=== PATIENT | female | born 1975 | race Caucasian/White ===

== ENCOUNTER 2016-10-21 14:38 | Emergency (ER) | payer MEDICAID ==
[~2016-10-21] VITALS: Ht 162.6 cm; Wt 99.1 kg
[~2016-10-21 14:38] MED LIST: FERR324T4 PO; PREN1TAB12 PO; RANI150 PO; ZOFR4TAB3 PO
[2016-10-21 14:50] VITALS: BP 112/77; PULSE 82; RESP 16; TEMP 98.2; O2SAT 98
[2016-10-21] MEDS ORDERED: SODIUM CHLOR 0.9% 1000 ML INJ 1,000 ML IV SCH (15:06)
[2016-10-21 15:07] LABS: BLOOD, URINE NEG (NEG); GLUCOSE,URINE NEG (NEG); KETONE, URINE NEG (NEG); NITRITE,URINE NEG (NEG)
--- NOTE | 2016-10-21 15:10 | PD ---
HPI Chief Complaint: Pain: Acute or Chronic Time Seen by Provider: 15:06 Travel History International Travel<30 days: No Contact w/Intl Traveler<30days: No Traveled to known affect area: No History of Present Illness HPI 41-year-old female patient with history of diabetes, presents to the ER today because of right flank pains or radiation down to her right lower quadrant. She has been dizzy, having headaches, nauseous. She states she has had a missed period. She denies any urinary symptoms or unusual discharge. She denies fevers or other symptoms. Modifying Factors: None Associated Signs & Symptoms: Right flank pains, nausea, dizziness, headaches Risk Factors: None PFSH Past Medical History Anemia: Yes Cancer: No Cardiovascular Problems: No Diabetes: Yes (Gestational) Patient Takes Glucophage: No Diminished Hearing: No Endocrine: No GERD: Yes Genitourinary: No Immune Disorder: No Musculoskeletal: No Neurologic: No Psychiatric: No Reproductive: No Respiratory: No Immunizations Current: No (UNSURE, FROM [facility] 2 mths ago) Sickle Cell Disease: Yes (Trait) Tetanus Vaccination: > 5 Years Influenza Vaccination: No ?: Unknown LMP: 09/21/16 : 4 Para: 3 Past Surgical History Section: Yes (X's 1) Gynecologic Surgery: Yes ( SECTION ) Other Surgery: Yes Social History Alcohol Use: No Tobacco Use: No Substance Use: No Allergies-Medications (Allergen,Severity, Reaction): Coded Allergies: No Known Allergies (Unverified , 10/21/16) Reported Meds & Prescriptions Reported Meds & Active Scripts Active No Active Prescriptions or Reported Medications Review of Systems Except as stated in HPI: all other systems reviewed are Neg Physical Exam Narrative GENERAL: Well-developed middle age -[place] female patient currently in mild distress. Awake and oriented 3. SKIN: Focused skin assessment warm/dry. HEAD: Atraumatic. Normocephalic. EYES: Pupils equal and round. No scleral icterus. No injection or drainage. ENT: No nasal bleeding or discharge. Mucous membranes pink and moist. NECK: Trachea midline. No JVD. CARDIOVASCULAR: Regular rate and rhythm. No murmur appreciated. RESPIRATORY: No accessory muscle use. Clear to auscultation. Breath sounds equal bilaterally. GASTROINTESTINAL: Abdomen soft, right sided pelvic tenderness without guarding or rebound, nondistended. Hepatic and splenic margins not palpable. GENITOURINARY: Normal external genitalia without lesions or erythema. Vaginal vault without blood or drainage. Cervical os was closed without drainage. No cervical motion tenderness. Uterus nontender and nonenlarged. Bilateral adnexa nontender without masses. MUSCULOSKELETAL: No obvious deformities. No clubbing. No cyanosis. No edema. NEUROLOGICAL: Awake and alert. No obvious cranial nerve deficits. Motor grossly within normal limits. Normal speech. PSYCHIATRIC: Appropriate mood and affect; insight and judgment normal. Data Data Last Documented VS Vital Signs Date Time Temp Pulse Resp B/P (MAP) Pulse Ox O2 Delivery O2 Flow Rate FiO2 10/21/16 15:15 95 Room Air 10/21/16 14:50 98.2 82 16 112/77 (89) Orders Orders Urinalysis - C+S If Indicated (10/21/16 14:57) Ed Urine Pregnancytest Poc (10/21/16 14:57) Beta Hcg (Quant/Titer) (10/21/16 15:06) Complete Blood Count With Diff (10/21/16 15:06) Comprehensive Metabolic Panel (10/21/16 15:06) Ct Abd/Pel W/O Iv Contrast (10/21/16 15:06) Iv Access Insert/Monitor (10/21/16 15:06) Ecg Monitoring (10/21/16 15:06) Oximetry (10/21/16 15:06) Morphine Inj (Morphine Inj) (10/21/16 15:15) Ondansetron Inj (Zofran Inj) (10/21/16 15:15) Sodium Chlor 0.9% 1000 Ml Inj (Ns 1000 M (10/21/16 15:06) Sodium Chloride 0.9% Flush (Ns Flush) (10/21/16 15:15) Gc And Chlamydia Pcr (10/21/16 16:29) Wet Prep Profile (10/21/16 16:29) Labs Laboratory Tests Test 10/21/16 15:00 10/21/16 15:15 10/21/16 16:30 Urine Color YELLOW Urine Turbidity CLEAR Urine pH 6.0 Urine Specific [place] 1.011 Urine Protein NEG mg/dL Urine Glucose (UA) NEG mg/dL Urine Ketones NEG mg/dL Urine Occult Blood NEG Urine Nitrite NEG Urine Bilirubin NEG Urine Leukocyte Esterase NEG Urine WBC 0-2 /hpf Urine Squamous Epithelial Cells 0-5 /hpf Microscopic Urinalysis Comment CULT NOT INDICATED White Blood Count 13.0 TH/MM3 Red Blood Count 4.99 MIL/MM3 Hemoglobin 11.1 GM/DL Hematocrit 35.2 % Mean Corpuscular Volume 70.5 FL Mean Corpuscular Hemoglobin 22.3 PG Mean Corpuscular Hemoglobin Concent 31.6 % Red Cell Distribution Width 17.5 % Platelet Count 232 TH/MM3 Mean Platelet Volume 9.1 FL CBC Comment AUTO DIFF Differential Total Cells Counted 100 Neutrophils % (Manual) 61 % Lymphocytes % 35 % Monocytes % 2 % Eosinophils % 2 % Neutrophils # (Manual) 7.9 TH/MM3 Differential Comment FINAL DIFF MANUAL Atypical Lymphocytes % Platelet Estimate NORMAL Platelet Morphology Comment NORMAL Target Cells 1+ Tear Drop Cells 1+ Ovalocytes 1+ Blood Urea Nitrogen 11 MG/DL Creatinine 0.90 MG/DL Random Glucose 126 MG/DL Total Protein 8.0 GM/DL Albumin 3.7 GM/DL Calcium Level 8.4 MG/DL Alkaline Phosphatase 88 U/L Aspartate Amino Transf (AST/SGOT) 16 U/L Alanine Aminotransferase (ALT/SGPT) 16 U/L Total Bilirubin 0.6 MG/DL Sodium Level 139 MEQ/L Potassium Level 3.7 MEQ/L Chloride Level 105 MEQ/L Carbon Dioxide Level 26.8 MEQ/L Anion Gap 7 MEQ/L Estimat Glomerular Filtration Rate 69 ML/MIN Human Chorionic Gonadotropin, Quant LESS THAN 1 MIU/ML Clue Cells (Wet Prep) NONE SEEN Vaginal Trichomonas (Wet Prep) NONE SEEN Vaginal Yeast (Wet Prep) NONE SEEN MDM Medical Decision Making Medical Screen Exam Complete: Yes Emergency Medical Condition: Yes Medical Record Reviewed: Yes Interpretation(s) Laboratory Tests Test 10/21/16 15:00 10/21/16 15:15 10/21/16 16:30 White Blood Count 13.0 TH/MM3 (4.0-11.0) Hemoglobin 11.1 GM/DL (11.6-15.3) Mean Corpuscular Volume 70.5 FL (80.0-100.0) Mean Corpuscular Hemoglobin 22.3 PG (27.0-34.0) Mean Corpuscular Hemoglobin Concent 31.6 % (32.0-36.0) Red Cell Distribution Width 17.5 % (11.6-17.2) Neutrophils # (Manual) 7.9 TH/MM3 (1.8-7.7) Target Cells 1+ (NORMAL) Tear Drop Cells 1+ (NORMAL) Ovalocytes 1+ (NORMAL) Random Glucose 126 MG/DL (74-106) Calcium Level 8.4 MG/DL (8.5-10.1) Estimat Glomerular Filtration Rate 69 ML/MIN (>89) Last 24 hours Impressions Abdomen/Pelvis CT 10/21/16 1506 Signed Impressions: Service Date/Time: Wednesday, October 21, 2016 15:47 - CONCLUSION: 1. No renal stones identified. 2. Calcified gallstones within the gallbladder. 3. No definite abnormality to explain the patient's back pain identified. Ramon Peck MD Differential Diagnosis UTI/pyelonephritis versus renal colic versus gastroenteritis versus appendicitis versus cervicitis Narrative Course CAT scan shows gallstones but no signs of acute issues. Lab work was otherwise unremarkable. UA shows no signs of UTI. Patient is not . At this point, I do not see any other acute processes my plan would be to release her with follow-up to primary care physician. Return for new issues as needed. The plan has discussed with her and she states understanding. Diagnosis Primary Impression: Right flank pain Med/Other Pt SpecificInfo: Prescription(s) given Scripts Ibuprofen (Motrin Ib) 200 Mg Tablet 600 MG PO QID Y for PAIN SCALE 1 TO 10, #28 Prov: Leno Hines MD 10/21/16 Disposition: 01 DISCHARGE HOME Condition: Stable Leno Hines MD Oct 21, 2016 15:10
[2016-10-21 15:14] LABS: URINE COLOR YELLOW (YELLW/STRAW)
[2016-10-21 15:15] VITALS: O2SAT 95
[2016-10-21 15:15] LABS: COMMENT (UR) CULT NOT INDICATED; CULTURE IF INDICATED CULT NOT INDICATED; SQUAMOUS EPITHELIAL CELL URINE 0-5 /hpf (0-5); WBC, URINE 0-2 /hpf (0-5)
[2016-10-21] MEDS ORDERED: ONDANSETRON HCL 4 MG/2 ML VIAL IVP ONE (15:15)
[2016-10-21] MEDS ORDERED: MORPHINE SULFATE 4 MG/ML INJ IV PUSH ONE (15:15)
[2016-10-21] MEDS ORDERED: SODIUM CHLORIDE 0.9% FLUSH 10 ML FLUSH IV FLUSH PRN (15:15)
[2016-10-21 15:26] LABS: HEMATOCRIT 35.2 % (35.0-46.0); MEAN CELL VOLUME 70.5 FL (80.0-100.0); MEAN CORPUSCULAR HEMOGLOBIN 22.3 PG (27.0-34.0); MEAN CORPUSCULAR HGB CONC 31.6 % (32.0-36.0); PLATELET COUNT 232 TH/MM3 (150-450); RED BLOOD COUNT 4.99 MIL/MM3 (4.00-5.30); RED CELL DISTRIBUTION WIDTH 17.5 % (11.6-17.2)
[2016-10-21 15:28] LABS: CHLORIDE 105 MEQ/L (98-107); POTASSIUM 3.7 MEQ/L (3.5-5.1); SODIUM (NA) 139 MEQ/L (136-145)
[2016-10-21 15:31] LABS: ANION GAP 7 MEQ/L (5-15); BICARBONATE 26.8 MEQ/L (21.0-32.0)
[2016-10-21 15:32] LABS: BLOOD UREA NITROGEN 11 MG/DL (7-18)
[2016-10-21 15:34] LABS: ALT (GPT) 16 U/L (10-53); AST (GOT) 16 U/L (15-37)
[2016-10-21 15:35] LABS: GLOMERULAR FILTRATION RATE 69 ML/MIN (>89)
[2016-10-21 15:36] LABS: TOTAL BILIRUBIN ADULT 0.6 MG/DL (0.2-1.0)
[2016-10-21 15:37] LABS: ALKALINE PHOSPHATASE 88 U/L (45-117)
[2016-10-21 15:39] LABS: BETA HCG QUANT LESS THAN 1 MIU/ML (0-5)
[2016-10-21 15:41] LABS: HEMO FLAGS AUTO DIFF
--- NOTE | 2016-10-21 16:04 | RADRPT ---
EXAM DATE/TIME: 10/21/2016 15:47 [facility] COMPARISON: No previous studies available for comparison. INDICATIONS : Right back pain that radiates to pelvic area. ORAL CONTRAST: No oral contrast ingested. RADIATION DOSE: 27.30 CTDIvol (mGy) ; High dose protocol; Patient body habitus MEDICAL HISTORY : None SURGICAL HISTORY : section. ENCOUNTER: Initial ACUITY: 1 day PAIN SCALE: 5/10 LOCATION: Right flank TECHNIQUE: Volumetric scanning of the abdomen and pelvis was performed. Using automated exposure control and ad justment of the mA and/or kV according to patient size, radiation dose was kept as low as reasonably achievable to obtain optimal diagnostic quality images. DICOM format image data is available electro nically for review and comparison. FINDINGS: Right kidney/ureter: The kidney is normal in size. No stones are seen. The ureter is followed throughout its course and is normal in appearance. Left kidney/ureter: The left kidney is normal in size. There is no hydronephrosis. The left ureter is followed throughout its course. No stones are identified. Bladder: No stones are identified within the bladder. CT source data: The limited portion of lung base visualized is clear. The appearance of the liver, spleen, pancreas a nd adrenal glands is within normal limits. There are multiple calcified gallstones within the gallbla dder. No free intraperitoneal air is seen. No retroperitoneal adenopathy is present. The abdominal ao rta is normal in caliber. There is a very minimal amount of free fluid within the pelvis. No iliac or inguinal adenopathy is present. The reproductive organs are intact. The visualized osseous structure s are intact. CONCLUSION: 1. No renal stones identified. 2. Calcified gallstones within the gallbladder. 3. No definite abnormality to explain the patient's back pain identified. Ramon Peck MD on October 21, 2016 at 15:57 Board Certified Radiologist. This report was verified electronically.
[2016-10-21 16:34] LABS: EOSINOPHILS 2 % (0-4); NEUTROPHIL # MANUAL DIFF 7.9 TH/MM3 (1.8-7.7); POLYS (SEG NEUTROPHILS) 61 % (16-70); WBC DIFF SAMPLE 100
[2016-10-21 16:35] LABS: OVALOCYTES 1+ (NORMAL); TARGET CELLS 1+ (NORMAL); TEARDROP RBCS 1+ (NORMAL)
[2016-10-21 16:36] LABS: PLATELET ESTIMATE SMEAR NORMAL (NORMAL); PLATELET MORPHOLOGY NORMAL (NORMAL); SCAN/DIFF FINAL DIFF MANUAL
[2016-10-21] MEDS ORDERED: IBUP-1129 PO (16:51)
[2016-10-21 20:22] LABS: CHLAMYDIA PCR NOT DETECTED (NOT DETECT); NEISSERIA PCR NOT DETECTED (NOT DETECT)
== END 2016-10-21 17:16 | disposition home or self-care (01) ==
LOC: PHED 14:38
DX: R10.31 Right lower quadrant pain (principal); R42 Dizziness and giddiness; R51 Headache; R11.0 Nausea; D57.3 Sickle-cell trait; Z86.2 Personal history of diseases of the blood and blood-forming organs and certain disorders involving the immune mechanism; Z87.19 Personal history of other diseases of the digestive system
CPT/HCPCS: 74176; 80053; 81001; 84702; 84703; 85007; 85027; 87210; 87491; 87591; 96361; 96374; 99285; J2405; J7030